=== PATIENT | female | born 1960 | race Caucasian/White ===

== ENCOUNTER 2017-11-25 22:20 | Inpatient (IN) | payer OTHER ==
[~2017-11-25] VITALS: Ht 160 cm; Wt 52.9 kg
[2017-11-25] MEDS ORDERED: OMEPRAZOLE PO (22:47)
[2017-11-25] MEDS ORDERED: LEVO137T2 PO (22:47)
[2017-11-25] MEDS ORDERED: CLARITHROMYCIN PO (22:47)
[2017-11-25] MEDS ORDERED: FLAGYL PO (22:47)
[2017-11-25] MEDS ORDERED: KIRKLAND SLEEP AID PO (22:47)
[2017-11-25 22:59] LABS: BASOPHILS # (AUTO) 0.03 x10^3/uL (0-0.1); BASOPHILS % (AUTO) 0 % (0-1); EOSINOPHILS # (AUTO) 0.06 x10^3/uL (0-0.4); EOSINOPHILS % (AUTO) 1 % (1-7); LYMPHOCYTES # (AUTO) 1.11 x10^3/uL (1-3.4); LYMPHOCYTES % (AUTO) 17 % (22-44); MD NO; MEAN CORPUSCULAR HEMOGLOBIN 33.6 pg (27.0-34.8); MEAN CORPUSCULAR HGB CONC 35.6 g/dL (32.4-35.8); MEAN CORPUSCULAR VOLUME 94.2 fL (80-100); MEAN PLATELET VOLUME 8.2 fL (7.4-10.4); MONOCYTES # (AUTO) 0.29 x10^3/uL (0.2-0.8); MONOCYTES % (AUTO) 4 % (2-9); NEUTROPHILS # (AUTO) 5.09 x10^3/uL (1.8-6.8); NEUTROPHILS % (AUTO) 78 % (42-75); PLATELET COUNT 188 x10^3/uL (130-400); RED BLOOD COUNT 3.84 x10^6/uL (3.82-5.3); RED CELL DISTRIBUTION WIDTH 12.6 % (9.6-15.2)
[2017-11-25] MEDS ORDERED: KETOROLAC 30 MG/1 ML IVPush ONE (23:00)
[2017-11-25] MEDS ORDERED: KETOROLAC 30 MG/1 ML ONE (23:02)
[2017-11-25 23:08] LABS: ALANINE AMINOTRANSFERASE 72 U/L (12-78); ALBUMIN 3.6 g/dL (3.4-5.0); ANION GAP 10 mmol/L (5-15); CALCIUM 8.3 mg/dL (8.5-10.1); CHLORIDE 90 mmol/L (98-107); CREATININE 0.69 mg/dL (0.55-1.02)
[2017-11-25 23:12] LABS: ALKALINE PHOSPHATASE 54 U/L (45-117); BILIRUBIN,TOTAL 2.6 mg/dL (0.2-1.0); TOTAL PROTEIN 6.9 g/dL (6.4-8.2); TROPONIN I < 0.015 ng/mL (0.000-0.045)
[2017-11-25 23:26] LABS: MICROSCOPIC NOT IND
[2017-11-25] MEDS ORDERED: POTASSIUM CHLORIDE 20 MEQ TAB.ER.PRT ONE (23:26)
[2017-11-25] MEDS ORDERED: POTASSIUM CHLORIDE 20 MEQ TAB.ER.PRT PO ONE (23:30)
[2017-11-25 23:38] LABS: AMPHETAMINE SCREEN, URINE Negative (Negative); BARBITURATE SCREEN, URINE Negative (Negative); BENZODIAZEPINE SCREEN, URINE Positive (Negative); CANNABINOID SCREEN, URINE Negative (Negative); COCAINE SCREEN, URINE Negative (Negative); METHADONE SCREEN, URINE Negative (Negative); OPIATE SCREEN, URINE Negative (Negative)
[2017-11-25 23:48] LABS: FREE T4 (FREE THYROXINE) 0.79 ng/dL (0.76-1.46); THYROID STIMULATING HORMONE 31.2 mIU/L (0.358-3.740)
[2017-11-26] MEDS ORDERED: SODIUM CHLORIDE 0.9% 1,000ML IVBOLUS ONE
[2017-11-26 00:10] LABS: CULTURE INDICATED? NO
[2017-11-26] MEDS ORDERED: POTASSIUM CHLORIDE 20 MEQ in SODIUM CHLORIDE 0.9% 1,000 ML IV ONE (00:22)
[2017-11-26] MEDS ORDERED: NS + 20MEQ KCL 1,000 ML IV ONE (00:44)
[2017-11-26] MEDS ORDERED: MORPHINE SULFATE 4 MG/ML, 1ML ONE (00:44)
[2017-11-26] MEDS ORDERED: METHOCARBAMOL 750 MG TABLET ONE (00:44)
[2017-11-26] MEDS ORDERED: MORPHINE SULFATE 4 MG/ML, 1ML IVPush PRN ×2 (01:00)
[2017-11-26] MEDS ORDERED: METHOCARBAMOL 750 MG TABLET PO ONE (01:00)
[2017-11-26] MEDS ORDERED: ONDANSETRON 2MG/ML, 2ML IVPush PRN ×2 (01:00→05:00)
[2017-11-26 01:46] VITALS: BP 123/80
[2017-11-26 01:55] VITALS: BP 123/80
[2017-11-26] MEDS ORDERED: DOCUSATE 100 MG CAPSULE PO PRN (05:00)
[2017-11-26] MEDS ORDERED: POLYETHYLENE GLYCOL 17 GM PACKET PO PRN (05:00)
[2017-11-26] MEDS ORDERED: ACETAMINOPHEN 325 MG TABLET PO PRN (05:00)
[2017-11-26] MEDS ORDERED: NICOTINE 14MG/24 HR PATCH.TD24 TD SCH (05:00)
[2017-11-26] MEDS ORDERED: BISACODYL 10 MG SUPP PR PRN (05:00)
[2017-11-26] MEDS ORDERED: hydrALAzine 20 MG/ML, 1ML IVPush PRN (05:00)
[2017-11-26] MEDS ORDERED: PROMETHAZINE 25 MG/ML, 1ML IM PRN (05:00)
[2017-11-26] MEDS ORDERED: morphine SULFATE 10 MG/ML, 1ML IVPush PRN (05:00)
[2017-11-26] MEDS ORDERED: ONDANSETRON ODT 4 MG PO PRN (05:00)
[2017-11-26] MEDS: HEPARIN 5,000 UNITS/ML, 1ML SQ SCH ×2 (05:16→13:47)
[2017-11-26] MEDS: metroNIDAZOLE 500 MG TABLET PO SCH ×2 (05:17→13:47)
[2017-11-26] MEDS: OXYcodone IR 5MG TABLET PO PRN ×3 (05:17→16:51)
[2017-11-26] MEDS ORDERED: LEVOTHYROXINE 150 MCG TABLET PO SCH (06:00)
[2017-11-26] MEDS ORDERED: LEVOTHYROXINE 137 MCG TABLET PO SCH (06:00)
[2017-11-26] MEDS ORDERED: OMNIPAQUE 350 MG/ML, 100ML BOTTLE ONE (06:24)
[2017-11-26 06:51] LABS: HEMOGLOBIN A1C 5.7 % (4.2-6.3)
[2017-11-26 06:52] LABS: FREE T4 (FREE THYROXINE) 0.77 ng/dL (0.76-1.46)
[2017-11-26 07:13] VITALS: BP 106/74
[2017-11-26] MEDS ORDERED: PANTOPROZOLE 40MG TABLET PO SCH (07:30)
[2017-11-26] MEDS ORDERED: CLARITHROMYCIN 500 MG TABLET PO SCH (09:00)
[2017-11-26 11:50] LABS: ANION GAP 12 mmol/L (5-15); CALCIUM 7.9 mg/dL (8.5-10.1); CHLORIDE 101 mmol/L (98-107)
[2017-11-26 11:51] LABS: CREATININE 0.57 mg/dL (0.55-1.02)
[2017-11-26 12:17] VITALS: BP 115/71
== END 2017-11-26 19:10 | disposition left against medical advice (07) | DRG 543 ==
LOC: ED 23:32 → EDIP 11-26 00:41 → 4EST 11-26 01:22
PROVIDERS: ADMIT Internal Medicine; ATTEND Internal Medicine
DX: M48.54XA Collapsed vertebra, not elsewhere classified, thoracic region, initial encounter for fracture (principal); E87.1 Hypo-osmolality and hyponatremia; E03.9 Hypothyroidism, unspecified; E86.0 Dehydration; E87.6 Hypokalemia; R10.9 Unspecified abdominal pain; R11.2 Nausea with vomiting, unspecified; F10.21 Alcohol dependence, in remission; F17.210 Nicotine dependence, cigarettes, uncomplicated; K21.9 Gastro-esophageal reflux disease without esophagitis; Z83.3 Family history of diabetes mellitus; Z86.19 Personal history of other infectious and parasitic diseases; Z98.51 Tubal ligation status; Z79.899 Other long term (current) drug therapy
CPT/HCPCS: 36415; 71045; 71275; 76700; 80048; 80053; 80307; 81003; 83036; 83735; 84439; 84443; 84484; 85025; 85379; 93005; 96374; 99285; J1644; J1885; J3480; Q9967; J7030

== ENCOUNTER 2017-11-26 23:28 | Emergency (ER) | payer OTHER ==
[~2017-11-26] VITALS: Ht 160 cm; Wt 51.8 kg
[~2017-11-26 23:28] MED LIST: CLARITHROMYCIN PO; FLAGYL PO; KIRKLAND SLEEP AID PO; LEVO137T2 PO; OMEPRAZOLE PO
[2017-11-27 00:35] LABS: ANION GAP 10 mmol/L (5-15); CALCIUM 8.1 mg/dL (8.5-10.1); CHLORIDE 99 mmol/L (98-107); CREATININE 0.75 mg/dL (0.55-1.02)
[2017-11-27 00:37] VITALS: BP 138/69
[2017-11-27] MEDS ORDERED: PROMETHAZINE 25MG TABLET PO PRN (01:00)
[2017-11-27] MEDS ORDERED: POTASSIUM CHLORIDE 20 MEQ TAB.ER.PRT ONE (01:08)
[2017-11-27] MEDS ORDERED: PROMETHAZINE 25MG TABLET ONE (01:08)
[2017-11-27] MEDS ORDERED: POTASSIUM CHLORIDE 20 MEQ TAB.ER.PRT PO SCH (08:00)
== END 2017-11-27 01:16 | disposition home or self-care (01) ==
LOC: ED 11-27
DX: R10.84 Generalized abdominal pain (principal); E87.6 Hypokalemia; E03.9 Hypothyroidism, unspecified; F17.200 Nicotine dependence, unspecified, uncomplicated
CPT/HCPCS: 36415; 80048; 83605; 99284; Q0169

== ENCOUNTER → 2018-01-21 | Outpatient (CLI) | payer OTHER | END | disposition home or self-care (01) | LOC: RAD 16:38 | PROVIDERS: ATTEND Physician Assistant Surgical | DX: S22.069A Unspecified fracture of T7-T8 vertebra, initial encounter for closed fracture (principal); X58.XXXA Exposure to other specified factors, initial encounter; Y93.89 Activity, other specified; Y92.89 Other specified places as the place of occurrence of the external cause; Y99.8 Other external cause status | CPT/HCPCS: 72146 ==